=== PATIENT | male | born 1930 | race Caucasian/White ===

== ENCOUNTER → 2018-01-13 | Outpatient (REF) ==
[~2018-01-13] MED LIST: ASPIRIN E.C. 8181 MG PO; FOLIC ACID 40400 MCG PO; IRON325 MG PO; LOPRESSOR 225 MG/TAB PO; PRINZIDE 25 MG-1 TAB PO; VITAMIN C500 MG PO; ZOCOR 20MG20 MG PO
== END ==
LOC: COL.CARD 13:13
DX: Z01.818 Encounter for other preprocedural examination (principal)

== ENCOUNTER → 2018-01-26 | Outpatient (REF) | LOC: ZLAB.WCH 18:06 | DX: Z01.89 Encounter for other specified special examinations (principal) ==

== ENCOUNTER 2018-03-26 09:09 | Day surgery (SDC) | payer MEDICARE, BC ==
[~2018-03-26] VITALS: Ht 180.3 cm; Wt 83.4 kg
[2018-03-26 09:55] VITALS: BP 182/67; PULSE 54; TEMP 97.4
[2018-03-26 12:36] VITALS: BP 154/61; PULSE 52; TEMP 97.1
[2018-03-26 12:50] VITALS: BP 150/65; PULSE 45
[2018-03-26 13:05] VITALS: BP 159/61; PULSE 44
[2018-03-26 13:20] VITALS: BP 166/81; PULSE 44
[2018-03-26 14:20] VITALS: BP 173/72; PULSE 55
== END 2018-03-26 17:11 | disposition home or self-care (01) ==
LOC: SDCO 09:09
DX: K40.91 Unilateral inguinal hernia, without obstruction or gangrene, recurrent (principal); I10 Essential (primary) hypertension; E78.00 Pure hypercholesterolemia, unspecified; Z79.82 Long term (current) use of aspirin; Z79.899 Other long term (current) drug therapy; Z87.891 Personal history of nicotine dependence
CPT/HCPCS: A4314; C1781; J0690; J2405; J2704; J2710; J3010; J7120